=== PATIENT | female | born 1980 | race Caucasian/White ===

== ENCOUNTER → 2016-07-12 | Outpatient (CLI) | payer MEDICAID | END | disposition home or self-care (01) | LOC: WOUND 09:40 | PROVIDERS: ATTEND Physician Assistant | DX: L97.811 Non-pressure chronic ulcer of other part of right lower leg limited to breakdown of skin (principal); I89.0 Lymphedema, not elsewhere classified; E66.01 Morbid (severe) obesity due to excess calories; I10 Essential (primary) hypertension; Z87.891 Personal history of nicotine dependence | CPT/HCPCS: 87070; 87077; 87147; 87186; 87205; 99205 ==

== ENCOUNTER → 2016-07-17 | Outpatient (CLI) | payer MEDICAID | END | disposition home or self-care (01) | LOC: WOUND 11:02 | PROVIDERS: ATTEND Internal Medicine | DX: L97.811 Non-pressure chronic ulcer of other part of right lower leg limited to breakdown of skin (principal); I89.0 Lymphedema, not elsewhere classified; E66.01 Morbid (severe) obesity due to excess calories; I10 Essential (primary) hypertension; Z87.891 Personal history of nicotine dependence | CPT/HCPCS: 87070; 87077; 87147; 87186; 87205; 97597; 97598 ==

== ENCOUNTER → 2016-07-24 | Outpatient (CLI) | payer MEDICAID | END | disposition home or self-care (01) | LOC: WOUND 09:58 | PROVIDERS: ATTEND Internal Medicine | DX: L97.811 Non-pressure chronic ulcer of other part of right lower leg limited to breakdown of skin (principal); I89.0 Lymphedema, not elsewhere classified; E66.01 Morbid (severe) obesity due to excess calories; I10 Essential (primary) hypertension; Z87.891 Personal history of nicotine dependence | CPT/HCPCS: 97597 ==

== ENCOUNTER → 2016-07-31 | Outpatient (CLI) | payer MEDICAID | END | disposition home or self-care (01) | LOC: WOUND 09:58 | PROVIDERS: ATTEND Internal Medicine | DX: L97.811 Non-pressure chronic ulcer of other part of right lower leg limited to breakdown of skin (principal); I89.0 Lymphedema, not elsewhere classified; E66.01 Morbid (severe) obesity due to excess calories; I10 Essential (primary) hypertension; Z87.891 Personal history of nicotine dependence | CPT/HCPCS: 97597; 97598 ==

== ENCOUNTER → 2016-08-01 | Outpatient (CLI) | payer MEDICAID | END | disposition home or self-care (01) | LOC: CVU 11:32 | PROVIDERS: ATTEND Internal Medicine | DX: L97.811 Non-pressure chronic ulcer of other part of right lower leg limited to breakdown of skin (principal); I89.0 Lymphedema, not elsewhere classified; I10 Essential (primary) hypertension | CPT/HCPCS: 93922; 93925; 93970 ==

== ENCOUNTER → 2016-08-07 | Outpatient (CLI) | payer MEDICAID | END | disposition home or self-care (01) | LOC: WOUND 09:25 | PROVIDERS: ATTEND Internal Medicine | DX: L97.811 Non-pressure chronic ulcer of other part of right lower leg limited to breakdown of skin (principal); I89.0 Lymphedema, not elsewhere classified; E66.01 Morbid (severe) obesity due to excess calories; Z68.45 Body mass index [BMI] 70 or greater, adult; I10 Essential (primary) hypertension; Z87.891 Personal history of nicotine dependence | CPT/HCPCS: 97597; 97598 ==

== ENCOUNTER → 2016-08-14 | Outpatient (CLI) | payer MEDICAID | END | disposition home or self-care (01) | LOC: WOUND 09:30 | PROVIDERS: ATTEND Internal Medicine | DX: L97.811 Non-pressure chronic ulcer of other part of right lower leg limited to breakdown of skin (principal); I89.0 Lymphedema, not elsewhere classified; E66.01 Morbid (severe) obesity due to excess calories; Z68.45 Body mass index [BMI] 70 or greater, adult; I10 Essential (primary) hypertension; Z87.891 Personal history of nicotine dependence | CPT/HCPCS: 97597; 97598 ==

== ENCOUNTER → 2016-08-21 | Outpatient (CLI) | payer MEDICAID | END | disposition home or self-care (01) | LOC: WOUND 09:44 | PROVIDERS: ATTEND Internal Medicine | DX: L97.811 Non-pressure chronic ulcer of other part of right lower leg limited to breakdown of skin (principal); I89.0 Lymphedema, not elsewhere classified; E66.01 Morbid (severe) obesity due to excess calories; Z68.45 Body mass index [BMI] 70 or greater, adult; Z87.891 Personal history of nicotine dependence | CPT/HCPCS: 97597; 97598 ==

== ENCOUNTER → 2016-08-23 | Outpatient (CLI) | payer MEDICAID | END | disposition home or self-care (01) | LOC: WOUND 09:51 | PROVIDERS: ATTEND Physician Assistant | DX: L97.811 Non-pressure chronic ulcer of other part of right lower leg limited to breakdown of skin (principal); I89.0 Lymphedema, not elsewhere classified; E66.01 Morbid (severe) obesity due to excess calories; Z68.45 Body mass index [BMI] 70 or greater, adult; Z87.891 Personal history of nicotine dependence | CPT/HCPCS: 29581 ==

== ENCOUNTER → 2016-08-28 | Outpatient (CLI) | payer MEDICAID ==
[~2016-08-28] MED LIST: FURO20TA3 PO; LEVO500T33 PO; LOSA25TA5 PO; POTASSIUM PO
== END | disposition home or self-care (01) ==
LOC: WOUND 10:00
PROVIDERS: ATTEND Internal Medicine
DX: L97.811 Non-pressure chronic ulcer of other part of right lower leg limited to breakdown of skin (principal); I89.0 Lymphedema, not elsewhere classified; E66.01 Morbid (severe) obesity due to excess calories; I10 Essential (primary) hypertension; Z87.891 Personal history of nicotine dependence; Z72.89 Other problems related to lifestyle; Z68.45 Body mass index [BMI] 70 or greater, adult
CPT/HCPCS: 97597; 97598

== ENCOUNTER → 2016-08-30 | Outpatient (CLI) | payer MEDICAID | END | disposition home or self-care (01) | LOC: WOUND 10:23 | PROVIDERS: ATTEND Internal Medicine Cardiovascular Disease | DX: L97.811 Non-pressure chronic ulcer of other part of right lower leg limited to breakdown of skin (principal); I89.0 Lymphedema, not elsewhere classified; E66.01 Morbid (severe) obesity due to excess calories; Z68.45 Body mass index [BMI] 70 or greater, adult; Z86.73 Personal history of transient ischemic attack (TIA), and cerebral infarction without residual deficits; Z79.899 Other long term (current) drug therapy | CPT/HCPCS: 97602 ==

== ENCOUNTER 2016-09-04 11:51 | Inpatient (IN) | payer MEDICAID ==
[~2016-09-04] VITALS: Ht 165.1 cm; Wt 224.0 kg
[2016-09-04] MEDS ORDERED: SODIUM CHLORIDE 0.9% 1,000 ML IV ONE ×2 (12:29→14:22)
[2016-09-04] MEDS ORDERED: SODIUM CHLORIDE FLUSH 10ML SYR IVF ONE ×2 (12:30→14:30)
[2016-09-04] MEDS: AMPICILLIN/SULBACTAM 3 GM in SODIUM CHLORIDE 0.9% 100 ML IVPB ONE (12:30)
[2016-09-04] MEDS ORDERED: ONDANSETRON 2MG/ML, 2ML IVPush ONE (12:30)
[2016-09-04] MEDS ORDERED: ONDANSETRON 2MG/ML, 2ML ONE (14:14)
[2016-09-04] MEDS ORDERED: MORPHINE SULFATE 4 MG/ML, 1ML ONE ×2 (14:14→14:34)
[2016-09-04] MEDS: MORPHINE SULFATE 4 MG/ML, 1ML IVPush PRN ×2 (14:18→14:39)
[2016-09-04] MEDS ORDERED: LEVOFLOXACIN/PMX 750MG/150ML 150 ML ONE (14:25)
[2016-09-04] MEDS ORDERED: LEVOFLOXACIN/PMX 750MG/150ML 150 ML IVPB ONE (14:30)
[2016-09-04] MEDS ORDERED: SODIUM CHLORIDE 0.9% 1,000ML IVBOLUS ONE (14:30)
[2016-09-04] MEDS ORDERED: LEVO500T33 PO (14:31)
[2016-09-04] MEDS ORDERED: LOSA25TA5 PO (14:31)
[2016-09-04] MEDS ORDERED: POTASSIUM PO (14:31)
[2016-09-04] MEDS ORDERED: FURO20TA3 PO (14:31)
[2016-09-04] MEDS ORDERED: HYDROmorphone 1 MG/ML, 1ML ONE ×2 (14:59→15:42)
[2016-09-04] MEDS: HYDROmorphone 1 MG/ML, 1ML IVPush PRN ×2 (15:05→15:48)
[2016-09-04 15:07] LABS: BLOOD UREA NITROGEN 26 mg/dL (7-18)
[2016-09-04] MEDS ORDERED: SODIUM CHLORIDE FLUSH 10ML SYR IVF PRN (15:30)
[2016-09-04] MEDS ORDERED: ACETAMINOPHEN 325 MG TABLET PO PRN (16:00)
[2016-09-04] MEDS ORDERED: ONDANSETRON 2MG/ML, 2ML IVPush PRN (16:00)
[2016-09-04] MEDS ORDERED: LABETALOL 5MG/ML, 20ML IVPush PRN (16:00)
[2016-09-04] MEDS ORDERED: BISACODYL 10 MG SUPP PR PRN (16:00)
[2016-09-04] MEDS ORDERED: LACTATED RINGERS 1,000 ML IV SCH (16:00)
[2016-09-04] MEDS ORDERED: ENALAPRILAT 1.25 MG/ML, 2ML IVPush PRN (16:00)
[2016-09-04] MEDS ORDERED: HYDROmorphone 2 MG/ML, 1ML IVPush PRN (16:00)
[2016-09-04] MEDS ORDERED: KETOROLAC 30 MG/1 ML IVPush ONE (16:30)
[2016-09-04 16:47] LABS: C-REACTIVE PROTEIN, QUANT 1.8 mg/dL (0.02-0.49)
[2016-09-04] MEDS ORDERED: HYDROmorphone PCA 30 MG/30 ML IV PRN (18:00)
[2016-09-04] MEDS: PIPERACILLIN/TAZO/PMX 3.375GM 50 ML IV SCH ×2 (18:20→23:31)
[2016-09-04 18:56] VITALS: BP 145/85
[2016-09-04] MEDS: FAMOTIDINE 20 MG TABLET PO SCH (21:00)
[2016-09-04] MEDS: ENOXAPARIN 40 MG/0.4 ML SQ SCH (23:29)
[2016-09-05 03:53] VITALS: BP 153/89
[2016-09-05] MEDS: PIPERACILLIN/TAZO/PMX 3.375GM 50 ML IV SCH ×3 (05:42→17:41)
[2016-09-05 05:58] LABS: BLOOD UREA NITROGEN 28 mg/dL (7-18)
[2016-09-05 08:20] VITALS: BP 155/85
[2016-09-05] MEDS: FUROSEMIDE 20 MG TABLET PO SCH (08:54)
[2016-09-05] MEDS: SENNA/DOCUSATE TABLET PO SCH (08:54)
[2016-09-05] MEDS: LOSARTAN 25MG TABLET PO SCH (08:55)
[2016-09-05] MEDS: ENOXAPARIN 40 MG/0.4 ML SQ SCH ×2 (08:55→21:28)
[2016-09-05] MEDS: FAMOTIDINE 20 MG TABLET PO SCH ×2 (08:55→21:00)
[2016-09-05] MEDS ORDERED: DAKIN'S SOLUTION 1/4 STRENGTH 1,000 ML IRRIG SOLN EXT SCH (09:00)
[2016-09-05] MEDS: KETOROLAC 30 MG/1 ML IVPush SCH ×2 (11:39→17:41)
[2016-09-05 12:45] VITALS: BP 113/73
[2016-09-05] MEDS: OXYcodone/APAP 5/325MG TABLET PO SCH ×2 (15:35→21:28)
[2016-09-05 21:02] VITALS: BP 125/77
[2016-09-06] MEDS: PIPERACILLIN/TAZO/PMX 3.375GM 50 ML IV SCH ×3 (00:10→13:17)
[2016-09-06 02:00] VITALS: BP 131/78
[2016-09-06] MEDS: KETOROLAC 30 MG/1 ML IVPush SCH ×3 (02:00→20:41)
[2016-09-06] MEDS: OXYcodone/APAP 5/325MG TABLET PO SCH ×4 (03:15→22:15)
[2016-09-06] MEDS: LOSARTAN 25MG TABLET PO SCH (08:53)
[2016-09-06] MEDS: FUROSEMIDE 20 MG TABLET PO SCH (08:53)
[2016-09-06] MEDS: FAMOTIDINE 20 MG TABLET PO SCH ×2 (08:53→22:15)
[2016-09-06 08:54] VITALS: BP 147/84
[2016-09-06] MEDS: ENOXAPARIN 40 MG/0.4 ML SQ SCH ×2 (08:54→22:15)
[2016-09-06] MEDS: SENNA/DOCUSATE TABLET PO SCH (08:54)
[2016-09-06] MEDS: DAKIN'S SOLUTION 1/4 STRENGTH 1,000 ML IRRIG SOLN EXT SCH ×2 (09:00→21:00)
[2016-09-06 15:25] VITALS: BP 125/77
[2016-09-06] MEDS: AMPICILLIN/SULBACTAM 3 GM in SODIUM CHLORIDE 0.9% 100 ML IV SCH ×2 (15:53→22:15)
[2016-09-06 20:33] VITALS: BP 124/94
[2016-09-06] MEDS: AMITRIPTYLINE 25 MG TABLET PO SCH (22:15)
[2016-09-07 02:12] VITALS: BP 139/91
[2016-09-07] MEDS: KETOROLAC 30 MG/1 ML IVPush SCH ×3 (04:09→20:58)
[2016-09-07] MEDS: OXYcodone/APAP 5/325MG TABLET PO SCH ×4 (04:09→22:22)
[2016-09-07] MEDS: AMPICILLIN/SULBACTAM 3 GM in SODIUM CHLORIDE 0.9% 100 ML IV SCH ×2 (05:09→10:44)
[2016-09-07 06:41] VITALS: BP 124/80
[2016-09-07] MEDS: SENNA/DOCUSATE TABLET PO SCH (07:40)
[2016-09-07] MEDS: FAMOTIDINE 20 MG TABLET PO SCH ×2 (07:40→20:58)
[2016-09-07] MEDS: FUROSEMIDE 20 MG TABLET PO SCH (07:41)
[2016-09-07] MEDS: LOSARTAN 25MG TABLET PO SCH (07:41)
[2016-09-07] MEDS: ENOXAPARIN 40 MG/0.4 ML SQ SCH ×2 (07:42→20:58)
[2016-09-07] MEDS: DAKIN'S SOLUTION 1/4 STRENGTH 1,000 ML IRRIG SOLN EXT SCH ×2 (09:00→21:00)
[2016-09-07] MEDS ORDERED: HYDROmorphone PCA 30 MG/30 ML IV PRN (12:30)
[2016-09-07 14:03] VITALS: BP 123/77
[2016-09-07] MEDS: AMOXICILLIN/CLAV 875-125MG TABLET PO SCH (16:05)
[2016-09-07 18:26] VITALS: BP 132/80
[2016-09-07] MEDS: AMITRIPTYLINE 25 MG TABLET PO SCH (21:00)
[2016-09-08 02:39] VITALS: BP 125/69
[2016-09-08] MEDS: AMOXICILLIN/CLAV 875-125MG TABLET PO SCH ×2 (04:02→17:20)
[2016-09-08] MEDS: OXYcodone/APAP 5/325MG TABLET PO SCH ×4 (04:03→22:43)
[2016-09-08] MEDS: KETOROLAC 30 MG/1 ML IVPush SCH ×3 (05:06→22:39)
[2016-09-08] MEDS: DAKIN'S SOLUTION 1/4 STRENGTH 1,000 ML IRRIG SOLN EXT SCH ×2 (06:14→21:00)
[2016-09-08 07:35] VITALS: BP 138/80
[2016-09-08] MEDS: SENNA/DOCUSATE TABLET PO SCH (07:36)
[2016-09-08] MEDS: POLYETHYLENE GLYCOL 17 GM PACKET PO PRN (07:37)
[2016-09-08] MEDS: FAMOTIDINE 20 MG TABLET PO SCH ×2 (07:37→22:43)
[2016-09-08] MEDS: LOSARTAN 25MG TABLET PO SCH (07:37)
[2016-09-08] MEDS: ENOXAPARIN 40 MG/0.4 ML SQ SCH ×2 (07:37→22:44)
[2016-09-08] MEDS: FUROSEMIDE 20 MG TABLET PO SCH (07:37)
[2016-09-08 13:13] VITALS: BP 129/98
[2016-09-08 20:15] VITALS: BP 123/67
[2016-09-08] MEDS: AMITRIPTYLINE 25 MG TABLET PO SCH (21:00)
[2016-09-09 04:18] VITALS: BP 119/79
[2016-09-09] MEDS: OXYcodone/APAP 5/325MG TABLET PO SCH ×4 (04:47→23:00)
[2016-09-09] MEDS: AMOXICILLIN/CLAV 875-125MG TABLET PO SCH ×2 (04:47→17:46)
[2016-09-09 04:49] VITALS: BP 130/85
[2016-09-09] MEDS ORDERED: HYDROmorphone PCA 30 MG/30 ML IV PRN (06:00)
[2016-09-09 06:30] VITALS: BP 129/78
[2016-09-09] MEDS: IBUPROFEN 800 MG TABLET PO SCH ×3 (06:32→23:00)
[2016-09-09] MEDS ORDERED: SENNA/DOCUSATE TABLET PO SCH (09:00)
[2016-09-09] MEDS: FAMOTIDINE 20 MG TABLET PO SCH ×2 (09:21→23:00)
[2016-09-09] MEDS: SENNA/DOCUSATE TABLET PO SCH (09:21)
[2016-09-09] MEDS: FUROSEMIDE 20 MG TABLET PO SCH (09:21)
[2016-09-09] MEDS: LOSARTAN 25MG TABLET PO SCH (09:21)
[2016-09-09] MEDS: ENOXAPARIN 40 MG/0.4 ML SQ SCH ×2 (09:22→23:01)
[2016-09-09] MEDS: POLYETHYLENE GLYCOL 17 GM PACKET PO PRN (09:27)
[2016-09-09] MEDS: DAKIN'S SOLUTION 1/4 STRENGTH 1,000 ML IRRIG SOLN EXT SCH ×2 (11:15→21:00)
[2016-09-09 12:11] VITALS: BP 120/79
[2016-09-09 18:35] VITALS: BP 131/81
[2016-09-10 01:30] VITALS: BP 126/80
[2016-09-10] MEDS: OXYcodone/APAP 5/325MG TABLET PO SCH ×3 (05:46→16:45)
[2016-09-10] MEDS: AMOXICILLIN/CLAV 875-125MG TABLET PO SCH ×2 (05:46→16:45)
[2016-09-10 06:58] VITALS: BP 137/83
[2016-09-10] MEDS: IBUPROFEN 800 MG TABLET PO SCH ×2 (07:51→15:30)
[2016-09-10] MEDS: LOSARTAN 25MG TABLET PO SCH (09:44)
[2016-09-10] MEDS: ENOXAPARIN 40 MG/0.4 ML SQ SCH (09:44)
[2016-09-10] MEDS: SENNA/DOCUSATE TABLET PO SCH (09:44)
[2016-09-10] MEDS: FAMOTIDINE 20 MG TABLET PO SCH (09:44)
[2016-09-10] MEDS: FUROSEMIDE 20 MG TABLET PO SCH (09:44)
[2016-09-10 12:37] VITALS: BP 148/85
[2016-09-10] MEDS ORDERED: CEPH-368 PO (12:46)
[2016-09-10] MEDS: DAKIN'S SOLUTION 1/4 STRENGTH 1,000 ML IRRIG SOLN EXT SCH (17:36)
[2016-09-10 18:28] VITALS: BP 118/82
== END 2016-09-10 18:43 | disposition home or self-care (01) | DRG 300 ==
LOC: ED 15:25 → EDIP 15:27 → ED 15:47 → 3NE 16:47
PROVIDERS: ADMIT Family Medicine; ATTEND Family Medicine
DX: I83.012 Varicose veins of right lower extremity with ulcer of calf (principal); L97.219 Non-pressure chronic ulcer of right calf with unspecified severity; L03.115 Cellulitis of right lower limb; Z68.45 Body mass index [BMI] 70 or greater, adult; E66.01 Morbid (severe) obesity due to excess calories; I10 Essential (primary) hypertension; R73.03 Prediabetes; B96.4 Proteus (mirabilis) (morganii) as the cause of diseases classified elsewhere; B95.1 Streptococcus, group B, as the cause of diseases classified elsewhere; G89.29 Other chronic pain; Z87.891 Personal history of nicotine dependence; Z83.3 Family history of diabetes mellitus; Z82.49 Family history of ischemic heart disease and other diseases of the circulatory system; Z79.899 Other long term (current) drug therapy; Z90.49 Acquired absence of other specified parts of digestive tract
CPT/HCPCS: 36415; 80048; 80061; 82040; 82565; 83036; 83605; 84145; 84443; 85025; 85520; 85610; 86140; 87040; 96365; 96375; J0295; J1170; J1650; J1885; J1956; J2405; J2543; J7030; J7120

== ENCOUNTER → 2016-09-04 | Outpatient (CLI) | payer MEDICAID ==
[~2016-09-04] MED LIST changes: +CEPH-368 PO
== END | disposition home or self-care (01) ==
LOC: WOUND 10:30
PROVIDERS: ATTEND Internal Medicine
DX: L97.811 Non-pressure chronic ulcer of other part of right lower leg limited to breakdown of skin (principal); I89.0 Lymphedema, not elsewhere classified; E66.01 Morbid (severe) obesity due to excess calories; B95.1 Streptococcus, group B, as the cause of diseases classified elsewhere; Z86.73 Personal history of transient ischemic attack (TIA), and cerebral infarction without residual deficits; Z68.45 Body mass index [BMI] 70 or greater, adult; Z87.891 Personal history of nicotine dependence; Z90.49 Acquired absence of other specified parts of digestive tract; G89.29 Other chronic pain; Z72.89 Other problems related to lifestyle
CPT/HCPCS: 87070; 87077; 87147; 87186; 87205; 97597; 97598; 99215

== ENCOUNTER → 2016-09-13 | Outpatient (CLI) | payer MEDICAID | END | disposition home or self-care (01) | LOC: WOUND 13:09 | PROVIDERS: ATTEND Physician Assistant | DX: L97.811 Non-pressure chronic ulcer of other part of right lower leg limited to breakdown of skin (principal); I89.0 Lymphedema, not elsewhere classified; E66.01 Morbid (severe) obesity due to excess calories; Z68.45 Body mass index [BMI] 70 or greater, adult; Z87.891 Personal history of nicotine dependence | CPT/HCPCS: 97597; 97598 ==

== ENCOUNTER → 2016-09-16 | Outpatient (CLI) | payer MEDICAID | END | disposition home or self-care (01) | LOC: WOUND 10:59 | PROVIDERS: ATTEND Physician Assistant | DX: L97.811 Non-pressure chronic ulcer of other part of right lower leg limited to breakdown of skin (principal); I89.0 Lymphedema, not elsewhere classified; E66.01 Morbid (severe) obesity due to excess calories; Z68.45 Body mass index [BMI] 70 or greater, adult; I10 Essential (primary) hypertension; Z87.891 Personal history of nicotine dependence | CPT/HCPCS: 29581 ==

== ENCOUNTER → 2016-09-18 | Outpatient (CLI) | payer MEDICAID | END | disposition home or self-care (01) | LOC: WOUND 11:00 | PROVIDERS: ATTEND Internal Medicine | DX: L97.811 Non-pressure chronic ulcer of other part of right lower leg limited to breakdown of skin (principal); E66.01 Morbid (severe) obesity due to excess calories; I10 Essential (primary) hypertension; Z68.45 Body mass index [BMI] 70 or greater, adult; B96.4 Proteus (mirabilis) (morganii) as the cause of diseases classified elsewhere; B95.1 Streptococcus, group B, as the cause of diseases classified elsewhere; Z86.73 Personal history of transient ischemic attack (TIA), and cerebral infarction without residual deficits; Z79.899 Other long term (current) drug therapy; Z87.891 Personal history of nicotine dependence; Z72.89 Other problems related to lifestyle | CPT/HCPCS: 97597; 97598 ==

== ENCOUNTER → 2016-09-20 | Outpatient (CLI) | payer MEDICAID | END | disposition home or self-care (01) | LOC: WOUND 08:30 | PROVIDERS: ATTEND Physician Assistant | DX: L97.811 Non-pressure chronic ulcer of other part of right lower leg limited to breakdown of skin (principal); E66.01 Morbid (severe) obesity due to excess calories; I89.0 Lymphedema, not elsewhere classified; G89.29 Other chronic pain; I10 Essential (primary) hypertension; Z68.45 Body mass index [BMI] 70 or greater, adult; Z79.899 Other long term (current) drug therapy; Z72.89 Other problems related to lifestyle; Z86.73 Personal history of transient ischemic attack (TIA), and cerebral infarction without residual deficits | CPT/HCPCS: 29581 ==

== ENCOUNTER → 2016-09-24 | Outpatient (CLI) | payer MEDICAID | END | disposition home or self-care (01) | LOC: WOUND 10:24 | PROVIDERS: ATTEND Internal Medicine | DX: L97.811 Non-pressure chronic ulcer of other part of right lower leg limited to breakdown of skin (principal); I89.0 Lymphedema, not elsewhere classified; E66.01 Morbid (severe) obesity due to excess calories; I10 Essential (primary) hypertension; Z72.89 Other problems related to lifestyle; Z87.891 Personal history of nicotine dependence | CPT/HCPCS: 97597; 97598 ==

== ENCOUNTER → 2016-09-27 | Outpatient (CLI) | payer MEDICAID | END | disposition home or self-care (01) | LOC: WOUND 10:54 | PROVIDERS: ATTEND Physician Assistant | DX: L97.811 Non-pressure chronic ulcer of other part of right lower leg limited to breakdown of skin (principal); I89.0 Lymphedema, not elsewhere classified; E66.01 Morbid (severe) obesity due to excess calories; I10 Essential (primary) hypertension; G89.29 Other chronic pain; Z68.45 Body mass index [BMI] 70 or greater, adult; Z86.73 Personal history of transient ischemic attack (TIA), and cerebral infarction without residual deficits; Z87.891 Personal history of nicotine dependence; Z72.89 Other problems related to lifestyle | CPT/HCPCS: 29581 ==

== ENCOUNTER → 2016-10-01 | Outpatient (CLI) | payer MEDICAID | END | disposition home or self-care (01) | LOC: WOUND 11:15 | PROVIDERS: ATTEND Internal Medicine | DX: L97.821 Non-pressure chronic ulcer of other part of left lower leg limited to breakdown of skin (principal); I89.0 Lymphedema, not elsewhere classified; E66.01 Morbid (severe) obesity due to excess calories; I10 Essential (primary) hypertension; Z72.89 Other problems related to lifestyle; Z68.45 Body mass index [BMI] 70 or greater, adult; Z79.899 Other long term (current) drug therapy; Z86.73 Personal history of transient ischemic attack (TIA), and cerebral infarction without residual deficits; Z87.891 Personal history of nicotine dependence; Z90.49 Acquired absence of other specified parts of digestive tract | CPT/HCPCS: 97597; 97598 ==

== ENCOUNTER → 2016-10-04 | Outpatient (CLI) | payer MEDICAID | END | disposition home or self-care (01) | LOC: WOUND 10:30 | PROVIDERS: ATTEND Physician Assistant | DX: L97.811 Non-pressure chronic ulcer of other part of right lower leg limited to breakdown of skin (principal); I89.0 Lymphedema, not elsewhere classified; E66.01 Morbid (severe) obesity due to excess calories; I10 Essential (primary) hypertension; Z68.45 Body mass index [BMI] 70 or greater, adult; Z90.49 Acquired absence of other specified parts of digestive tract; Z87.891 Personal history of nicotine dependence; Z72.89 Other problems related to lifestyle; Z86.73 Personal history of transient ischemic attack (TIA), and cerebral infarction without residual deficits | CPT/HCPCS: 29581 ==

== ENCOUNTER → 2016-10-08 | Outpatient (CLI) | payer MEDICAID | END | disposition home or self-care (01) | LOC: WOUND 11:08 | PROVIDERS: ATTEND Internal Medicine | DX: L97.811 Non-pressure chronic ulcer of other part of right lower leg limited to breakdown of skin (principal); I89.0 Lymphedema, not elsewhere classified; E66.01 Morbid (severe) obesity due to excess calories; I10 Essential (primary) hypertension; Z86.73 Personal history of transient ischemic attack (TIA), and cerebral infarction without residual deficits; G89.29 Other chronic pain; Z68.45 Body mass index [BMI] 70 or greater, adult; Z72.89 Other problems related to lifestyle; Z87.891 Personal history of nicotine dependence | CPT/HCPCS: 97597; 97598 ==

== ENCOUNTER → 2016-10-11 | Outpatient (CLI) | payer MEDICAID | END | disposition home or self-care (01) | LOC: WOUND 11:00 | PROVIDERS: ATTEND Physician Assistant | DX: L97.811 Non-pressure chronic ulcer of other part of right lower leg limited to breakdown of skin (principal); I89.0 Lymphedema, not elsewhere classified; E66.01 Morbid (severe) obesity due to excess calories; Z68.45 Body mass index [BMI] 70 or greater, adult; I10 Essential (primary) hypertension; Z87.891 Personal history of nicotine dependence; Z72.89 Other problems related to lifestyle; Z86.73 Personal history of transient ischemic attack (TIA), and cerebral infarction without residual deficits; G89.29 Other chronic pain | CPT/HCPCS: 29581 ==

== ENCOUNTER → 2016-10-16 | Outpatient (CLI) | payer MEDICAID | END | disposition home or self-care (01) | LOC: WOUND 11:05 | PROVIDERS: ATTEND Internal Medicine | DX: L97.811 Non-pressure chronic ulcer of other part of right lower leg limited to breakdown of skin (principal); I89.0 Lymphedema, not elsewhere classified; E66.01 Morbid (severe) obesity due to excess calories; Z68.45 Body mass index [BMI] 70 or greater, adult; I10 Essential (primary) hypertension; G89.29 Other chronic pain; Z72.89 Other problems related to lifestyle; Z87.891 Personal history of nicotine dependence; Z86.73 Personal history of transient ischemic attack (TIA), and cerebral infarction without residual deficits | CPT/HCPCS: 97597; 97598 ==

== ENCOUNTER → 2016-10-22 | Outpatient (CLI) | payer MEDICAID | END | disposition home or self-care (01) | LOC: WOUND 10:50 | PROVIDERS: ATTEND Internal Medicine Cardiovascular Disease | DX: L97.811 Non-pressure chronic ulcer of other part of right lower leg limited to breakdown of skin (principal); I89.0 Lymphedema, not elsewhere classified; E66.01 Morbid (severe) obesity due to excess calories; I10 Essential (primary) hypertension; G89.29 Other chronic pain; Z87.891 Personal history of nicotine dependence; Z68.45 Body mass index [BMI] 70 or greater, adult; Z86.73 Personal history of transient ischemic attack (TIA), and cerebral infarction without residual deficits | CPT/HCPCS: 29581 ==

== ENCOUNTER → 2016-10-29 | Outpatient (CLI) | payer MEDICAID ==
[~2016-10-29] MED LIST changes: -LEVO500T33 PO; +LEVO500T47 PO
== END | disposition home or self-care (01) ==
LOC: WOUND 11:19
PROVIDERS: ATTEND Internal Medicine
DX: L97.811 Non-pressure chronic ulcer of other part of right lower leg limited to breakdown of skin (principal); I89.0 Lymphedema, not elsewhere classified; E66.01 Morbid (severe) obesity due to excess calories; I10 Essential (primary) hypertension; Z68.45 Body mass index [BMI] 70 or greater, adult; Z87.891 Personal history of nicotine dependence; Z86.73 Personal history of transient ischemic attack (TIA), and cerebral infarction without residual deficits; Z90.49 Acquired absence of other specified parts of digestive tract; Z72.89 Other problems related to lifestyle
CPT/HCPCS: 97597; 97598

== ENCOUNTER → 2016-11-07 | Outpatient (CLI) | payer MEDICAID | END | disposition home or self-care (01) | LOC: WOUND 12:45 | PROVIDERS: ATTEND Internal Medicine Cardiovascular Disease | DX: L97.811 Non-pressure chronic ulcer of other part of right lower leg limited to breakdown of skin (principal); I89.0 Lymphedema, not elsewhere classified; E66.01 Morbid (severe) obesity due to excess calories; G89.29 Other chronic pain; Z68.45 Body mass index [BMI] 70 or greater, adult; Z72.89 Other problems related to lifestyle; Z87.891 Personal history of nicotine dependence; Z86.73 Personal history of transient ischemic attack (TIA), and cerebral infarction without residual deficits | CPT/HCPCS: 99214 ==

== ENCOUNTER → 2016-11-12 | Outpatient (CLI) | payer MEDICAID | LOC: WOUND 10:18 | PROVIDERS: ATTEND Internal Medicine | DX: L97.811 Non-pressure chronic ulcer of other part of right lower leg limited to breakdown of skin (principal); I89.0 Lymphedema, not elsewhere classified; E66.01 Morbid (severe) obesity due to excess calories; I10 Essential (primary) hypertension; Z87.891 Personal history of nicotine dependence; Z86.73 Personal history of transient ischemic attack (TIA), and cerebral infarction without residual deficits; Z90.49 Acquired absence of other specified parts of digestive tract; Z68.45 Body mass index [BMI] 70 or greater, adult; Z79.899 Other long term (current) drug therapy | CPT/HCPCS: 97597; 97598 ==

== ENCOUNTER → 2016-11-19 | Outpatient (CLI) | payer MEDICAID | END | disposition home or self-care (01) | LOC: WOUND 09:55 | PROVIDERS: ATTEND Internal Medicine | DX: L97.811 Non-pressure chronic ulcer of other part of right lower leg limited to breakdown of skin (principal); I89.0 Lymphedema, not elsewhere classified; E66.01 Morbid (severe) obesity due to excess calories; I10 Essential (primary) hypertension; Z90.49 Acquired absence of other specified parts of digestive tract; Z68.45 Body mass index [BMI] 70 or greater, adult; Z87.891 Personal history of nicotine dependence; Z86.73 Personal history of transient ischemic attack (TIA), and cerebral infarction without residual deficits; Z72.89 Other problems related to lifestyle | CPT/HCPCS: 97597; 97598 ==

== ENCOUNTER → 2016-11-26 | Outpatient (CLI) | payer MEDICAID | END | disposition home or self-care (01) | LOC: WOUND 09:45 | PROVIDERS: ATTEND Internal Medicine | DX: L97.811 Non-pressure chronic ulcer of other part of right lower leg limited to breakdown of skin (principal); I89.0 Lymphedema, not elsewhere classified; E66.01 Morbid (severe) obesity due to excess calories; I10 Essential (primary) hypertension; Z87.891 Personal history of nicotine dependence; Z90.49 Acquired absence of other specified parts of digestive tract; Z68.45 Body mass index [BMI] 70 or greater, adult; Z72.89 Other problems related to lifestyle; Z86.73 Personal history of transient ischemic attack (TIA), and cerebral infarction without residual deficits; Z79.899 Other long term (current) drug therapy | CPT/HCPCS: 97597; 97598 ==

== ENCOUNTER → 2016-12-03 | Outpatient (CLI) | payer MEDICAID | END | disposition home or self-care (01) | LOC: WOUND 09:45 | PROVIDERS: ATTEND Internal Medicine | DX: L97.811 Non-pressure chronic ulcer of other part of right lower leg limited to breakdown of skin (principal); I89.0 Lymphedema, not elsewhere classified; E66.01 Morbid (severe) obesity due to excess calories; I10 Essential (primary) hypertension; Z68.45 Body mass index [BMI] 70 or greater, adult; Z87.891 Personal history of nicotine dependence; Z86.73 Personal history of transient ischemic attack (TIA), and cerebral infarction without residual deficits; Z90.49 Acquired absence of other specified parts of digestive tract; Z72.89 Other problems related to lifestyle | CPT/HCPCS: 97597; 97598 ==

== ENCOUNTER → 2016-12-06 | Outpatient (CLI) | payer MEDICAID | END | disposition home or self-care (01) | LOC: WOUND 09:51 | PROVIDERS: ATTEND Internal Medicine Cardiovascular Disease | DX: L97.811 Non-pressure chronic ulcer of other part of right lower leg limited to breakdown of skin (principal); I89.0 Lymphedema, not elsewhere classified; E66.01 Morbid (severe) obesity due to excess calories; I10 Essential (primary) hypertension; Z68.45 Body mass index [BMI] 70 or greater, adult; Z90.49 Acquired absence of other specified parts of digestive tract; Z72.89 Other problems related to lifestyle; Z87.891 Personal history of nicotine dependence; Z86.73 Personal history of transient ischemic attack (TIA), and cerebral infarction without residual deficits | CPT/HCPCS: 29581 ==

== ENCOUNTER → 2016-12-10 | Outpatient (CLI) | payer MEDICAID | END | disposition home or self-care (01) | LOC: WOUND 10:30 | PROVIDERS: ATTEND Internal Medicine | DX: L97.811 Non-pressure chronic ulcer of other part of right lower leg limited to breakdown of skin (principal); I89.0 Lymphedema, not elsewhere classified; E66.01 Morbid (severe) obesity due to excess calories; I10 Essential (primary) hypertension; Z68.45 Body mass index [BMI] 70 or greater, adult; Z87.891 Personal history of nicotine dependence; Z86.73 Personal history of transient ischemic attack (TIA), and cerebral infarction without residual deficits; Z90.49 Acquired absence of other specified parts of digestive tract; Z72.89 Other problems related to lifestyle | CPT/HCPCS: 97597; 97598 ==

== ENCOUNTER → 2016-12-13 | Outpatient (CLI) | payer MEDICAID | END | disposition home or self-care (01) | LOC: WOUND 10:30 | PROVIDERS: ATTEND Physician Assistant | DX: L97.811 Non-pressure chronic ulcer of other part of right lower leg limited to breakdown of skin (principal); I89.0 Lymphedema, not elsewhere classified; E66.01 Morbid (severe) obesity due to excess calories; Z68.45 Body mass index [BMI] 70 or greater, adult; I10 Essential (primary) hypertension; Z72.89 Other problems related to lifestyle; Z87.891 Personal history of nicotine dependence; Z86.73 Personal history of transient ischemic attack (TIA), and cerebral infarction without residual deficits | CPT/HCPCS: 29581 ==

== ENCOUNTER → 2016-12-17 | Outpatient (CLI) | payer MEDICAID | END | disposition home or self-care (01) | LOC: WOUND 10:02 | PROVIDERS: ATTEND Specialist | DX: L97.811 Non-pressure chronic ulcer of other part of right lower leg limited to breakdown of skin (principal); I89.0 Lymphedema, not elsewhere classified; E66.01 Morbid (severe) obesity due to excess calories; Z68.45 Body mass index [BMI] 70 or greater, adult; I10 Essential (primary) hypertension; Z86.73 Personal history of transient ischemic attack (TIA), and cerebral infarction without residual deficits; Z87.891 Personal history of nicotine dependence; Z72.89 Other problems related to lifestyle | CPT/HCPCS: 29581 ==

== ENCOUNTER → 2016-12-24 | Outpatient (CLI) | payer MEDICAID | END | disposition home or self-care (01) | LOC: WOUND 10:15 | PROVIDERS: ATTEND Internal Medicine | DX: L97.811 Non-pressure chronic ulcer of other part of right lower leg limited to breakdown of skin (principal); I89.0 Lymphedema, not elsewhere classified; I10 Essential (primary) hypertension; E66.01 Morbid (severe) obesity due to excess calories; Z68.45 Body mass index [BMI] 70 or greater, adult; Z87.891 Personal history of nicotine dependence; Z72.89 Other problems related to lifestyle; Z86.73 Personal history of transient ischemic attack (TIA), and cerebral infarction without residual deficits; Z90.49 Acquired absence of other specified parts of digestive tract; Z79.899 Other long term (current) drug therapy | CPT/HCPCS: 97597; 97598 ==

== ENCOUNTER → 2016-12-27 | Outpatient (CLI) | payer MEDICAID | END | disposition home or self-care (01) | LOC: WOUND 09:47 | PROVIDERS: ATTEND Physician Assistant | DX: L97.811 Non-pressure chronic ulcer of other part of right lower leg limited to breakdown of skin (principal); I10 Essential (primary) hypertension; I89.0 Lymphedema, not elsewhere classified; E66.01 Morbid (severe) obesity due to excess calories; Z72.89 Other problems related to lifestyle; Z87.891 Personal history of nicotine dependence; Z86.73 Personal history of transient ischemic attack (TIA), and cerebral infarction without residual deficits; Z68.45 Body mass index [BMI] 70 or greater, adult | CPT/HCPCS: 29581 ==

== ENCOUNTER → 2016-12-31 | Outpatient (CLI) | payer MEDICAID | END | disposition home or self-care (01) | LOC: WOUND 09:59 | PROVIDERS: ATTEND Internal Medicine | DX: L97.811 Non-pressure chronic ulcer of other part of right lower leg limited to breakdown of skin (principal); I89.0 Lymphedema, not elsewhere classified; E66.01 Morbid (severe) obesity due to excess calories; Z68.45 Body mass index [BMI] 70 or greater, adult; I10 Essential (primary) hypertension; Z87.891 Personal history of nicotine dependence; Z72.89 Other problems related to lifestyle; Z86.73 Personal history of transient ischemic attack (TIA), and cerebral infarction without residual deficits | CPT/HCPCS: 97597 ==

== ENCOUNTER → 2017-01-07 | Outpatient (CLI) | payer MEDICAID | END | disposition home or self-care (01) | LOC: WOUND 08:30 | PROVIDERS: ATTEND Internal Medicine | DX: L97.811 Non-pressure chronic ulcer of other part of right lower leg limited to breakdown of skin (principal); I89.0 Lymphedema, not elsewhere classified; E66.01 Morbid (severe) obesity due to excess calories; Z68.45 Body mass index [BMI] 70 or greater, adult; I10 Essential (primary) hypertension; Z72.89 Other problems related to lifestyle; Z87.891 Personal history of nicotine dependence; Z86.73 Personal history of transient ischemic attack (TIA), and cerebral infarction without residual deficits | CPT/HCPCS: 11042 ==

== ENCOUNTER → 2017-01-09 | Outpatient (CLI) | payer MEDICAID | END | disposition home or self-care (01) | LOC: WOUND 10:43 | PROVIDERS: ATTEND Internal Medicine Cardiovascular Disease | DX: L97.811 Non-pressure chronic ulcer of other part of right lower leg limited to breakdown of skin (principal); I89.0 Lymphedema, not elsewhere classified; E66.01 Morbid (severe) obesity due to excess calories; I10 Essential (primary) hypertension; Z68.45 Body mass index [BMI] 70 or greater, adult; Z72.89 Other problems related to lifestyle; Z87.891 Personal history of nicotine dependence; Z86.73 Personal history of transient ischemic attack (TIA), and cerebral infarction without residual deficits | CPT/HCPCS: 29581 ==

== ENCOUNTER → 2017-01-24 | Outpatient (CLI) | payer MEDICAID | END | disposition home or self-care (01) | LOC: WOUND 10:53 | PROVIDERS: ATTEND Family Medicine | DX: L97.811 Non-pressure chronic ulcer of other part of right lower leg limited to breakdown of skin (principal); I89.0 Lymphedema, not elsewhere classified; E66.01 Morbid (severe) obesity due to excess calories; Z68.45 Body mass index [BMI] 70 or greater, adult; I10 Essential (primary) hypertension; Z72.89 Other problems related to lifestyle; Z87.891 Personal history of nicotine dependence; Z86.73 Personal history of transient ischemic attack (TIA), and cerebral infarction without residual deficits | CPT/HCPCS: 97597 ==

== ENCOUNTER → 2017-02-05 | Outpatient (CLI) | payer MEDICAID | END | disposition home or self-care (01) | LOC: WOUND 08:43 | PROVIDERS: ATTEND Internal Medicine | DX: L97.811 Non-pressure chronic ulcer of other part of right lower leg limited to breakdown of skin (principal); I89.0 Lymphedema, not elsewhere classified; E66.01 Morbid (severe) obesity due to excess calories; Z68.45 Body mass index [BMI] 70 or greater, adult; I10 Essential (primary) hypertension; Z72.89 Other problems related to lifestyle; Z87.891 Personal history of nicotine dependence; Z86.73 Personal history of transient ischemic attack (TIA), and cerebral infarction without residual deficits | CPT/HCPCS: 11042 ==

== ENCOUNTER → 2017-02-12 | Outpatient (CLI) | payer MEDICAID | END | disposition home or self-care (01) | LOC: WOUND 09:00 | PROVIDERS: ATTEND Family Medicine | DX: L97.811 Non-pressure chronic ulcer of other part of right lower leg limited to breakdown of skin (principal); I89.0 Lymphedema, not elsewhere classified; E66.01 Morbid (severe) obesity due to excess calories; I10 Essential (primary) hypertension; Z68.45 Body mass index [BMI] 70 or greater, adult; Z72.89 Other problems related to lifestyle; Z87.891 Personal history of nicotine dependence; Z86.73 Personal history of transient ischemic attack (TIA), and cerebral infarction without residual deficits | CPT/HCPCS: 97597 ==

== ENCOUNTER → 2017-02-18 | Outpatient (CLI) | payer MEDICAID | END | disposition home or self-care (01) | LOC: WOUND 09:19 | PROVIDERS: ATTEND Surgery | DX: L97.811 Non-pressure chronic ulcer of other part of right lower leg limited to breakdown of skin (principal); I89.0 Lymphedema, not elsewhere classified; E66.01 Morbid (severe) obesity due to excess calories; I10 Essential (primary) hypertension; Z68.45 Body mass index [BMI] 70 or greater, adult; Z72.89 Other problems related to lifestyle; Z87.891 Personal history of nicotine dependence; Z86.73 Personal history of transient ischemic attack (TIA), and cerebral infarction without residual deficits; Z90.49 Acquired absence of other specified parts of digestive tract | CPT/HCPCS: 99214 ==

== ENCOUNTER → 2017-03-14 | Outpatient (CLI) | payer MEDICAID | END | disposition home or self-care (01) | LOC: WOUND 14:00 | PROVIDERS: ATTEND Family Medicine | DX: L97.811 Non-pressure chronic ulcer of other part of right lower leg limited to breakdown of skin (principal); E66.01 Morbid (severe) obesity due to excess calories; I89.0 Lymphedema, not elsewhere classified; I10 Essential (primary) hypertension; Z87.891 Personal history of nicotine dependence; Z86.73 Personal history of transient ischemic attack (TIA), and cerebral infarction without residual deficits; Z90.49 Acquired absence of other specified parts of digestive tract; Z68.45 Body mass index [BMI] 70 or greater, adult; Z72.89 Other problems related to lifestyle | CPT/HCPCS: 11042 ==

== ENCOUNTER → 2017-03-18 | Outpatient (CLI) | payer MEDICAID | END | disposition home or self-care (01) | LOC: WOUND 10:42 | PROVIDERS: ATTEND Surgery | DX: L97.811 Non-pressure chronic ulcer of other part of right lower leg limited to breakdown of skin (principal); E66.01 Morbid (severe) obesity due to excess calories; I89.0 Lymphedema, not elsewhere classified; I10 Essential (primary) hypertension; Z90.49 Acquired absence of other specified parts of digestive tract; Z87.891 Personal history of nicotine dependence; Z86.73 Personal history of transient ischemic attack (TIA), and cerebral infarction without residual deficits; Z72.89 Other problems related to lifestyle; Z68.45 Body mass index [BMI] 70 or greater, adult | CPT/HCPCS: 29581 ==

== ENCOUNTER → 2017-03-21 | Outpatient (CLI) | payer MEDICAID | END | disposition home or self-care (01) | LOC: WOUND 08:10 | PROVIDERS: ATTEND Family Medicine | DX: L97.811 Non-pressure chronic ulcer of other part of right lower leg limited to breakdown of skin (principal); E66.01 Morbid (severe) obesity due to excess calories; I89.0 Lymphedema, not elsewhere classified; I10 Essential (primary) hypertension; Z87.891 Personal history of nicotine dependence; Z86.73 Personal history of transient ischemic attack (TIA), and cerebral infarction without residual deficits; Z68.45 Body mass index [BMI] 70 or greater, adult; Z90.49 Acquired absence of other specified parts of digestive tract; Z72.89 Other problems related to lifestyle | CPT/HCPCS: 97597 ==

== ENCOUNTER → 2017-03-25 | Outpatient (CLI) | payer MEDICAID | END | disposition home or self-care (01) | LOC: WOUND 09:00 | PROVIDERS: ATTEND Internal Medicine Cardiovascular Disease | DX: L97.811 Non-pressure chronic ulcer of other part of right lower leg limited to breakdown of skin (principal); E66.01 Morbid (severe) obesity due to excess calories; I89.0 Lymphedema, not elsewhere classified; I10 Essential (primary) hypertension; Z87.891 Personal history of nicotine dependence; Z68.45 Body mass index [BMI] 70 or greater, adult; Z72.89 Other problems related to lifestyle; Z86.73 Personal history of transient ischemic attack (TIA), and cerebral infarction without residual deficits | CPT/HCPCS: 29581 ==

== ENCOUNTER → 2017-03-28 | Outpatient (CLI) | payer MEDICAID | END | disposition home or self-care (01) | LOC: WOUND 09:00 | PROVIDERS: ATTEND Internal Medicine Cardiovascular Disease | DX: L97.811 Non-pressure chronic ulcer of other part of right lower leg limited to breakdown of skin (principal); E66.01 Morbid (severe) obesity due to excess calories; I89.0 Lymphedema, not elsewhere classified; I10 Essential (primary) hypertension; Z87.891 Personal history of nicotine dependence; Z86.73 Personal history of transient ischemic attack (TIA), and cerebral infarction without residual deficits; Z90.49 Acquired absence of other specified parts of digestive tract; Z68.45 Body mass index [BMI] 70 or greater, adult; Z72.89 Other problems related to lifestyle | CPT/HCPCS: 29581 ==

== ENCOUNTER → 2017-04-01 | Outpatient (CLI) | payer MEDICAID | END | disposition home or self-care (01) | LOC: WOUND 10:11 | PROVIDERS: ATTEND Internal Medicine Cardiovascular Disease | DX: I89.0 Lymphedema, not elsewhere classified (principal); I10 Essential (primary) hypertension; E66.01 Morbid (severe) obesity due to excess calories; Z87.891 Personal history of nicotine dependence; Z86.73 Personal history of transient ischemic attack (TIA), and cerebral infarction without residual deficits; Z90.49 Acquired absence of other specified parts of digestive tract; Z68.45 Body mass index [BMI] 70 or greater, adult; Z72.89 Other problems related to lifestyle | CPT/HCPCS: 29581 ==

== ENCOUNTER → 2017-04-04 | Outpatient (CLI) | payer MEDICAID | END | disposition home or self-care (01) | LOC: WOUND 11:15 | PROVIDERS: ATTEND Family Medicine | DX: I89.0 Lymphedema, not elsewhere classified (principal); L97.811 Non-pressure chronic ulcer of other part of right lower leg limited to breakdown of skin; E66.01 Morbid (severe) obesity due to excess calories; I10 Essential (primary) hypertension; Z87.891 Personal history of nicotine dependence; Z68.45 Body mass index [BMI] 70 or greater, adult; Z86.73 Personal history of transient ischemic attack (TIA), and cerebral infarction without residual deficits | CPT/HCPCS: 97597 ==

== ENCOUNTER → 2017-04-08 | Outpatient (CLI) | payer MEDICAID | END | disposition home or self-care (01) | LOC: WOUND 09:54 | PROVIDERS: ATTEND Internal Medicine Cardiovascular Disease | DX: L97.811 Non-pressure chronic ulcer of other part of right lower leg limited to breakdown of skin (principal); E66.01 Morbid (severe) obesity due to excess calories; I89.0 Lymphedema, not elsewhere classified; I10 Essential (primary) hypertension; Z86.73 Personal history of transient ischemic attack (TIA), and cerebral infarction without residual deficits; Z87.891 Personal history of nicotine dependence; Z72.89 Other problems related to lifestyle; Z90.49 Acquired absence of other specified parts of digestive tract; Z68.45 Body mass index [BMI] 70 or greater, adult | CPT/HCPCS: 29581 ==

== ENCOUNTER → 2017-04-11 | Outpatient (CLI) | payer MEDICAID | END | disposition home or self-care (01) | LOC: WOUND 10:30 | PROVIDERS: ATTEND Family Medicine | DX: L97.811 Non-pressure chronic ulcer of other part of right lower leg limited to breakdown of skin (principal); E66.01 Morbid (severe) obesity due to excess calories; I89.0 Lymphedema, not elsewhere classified; I10 Essential (primary) hypertension; Z90.49 Acquired absence of other specified parts of digestive tract; Z68.45 Body mass index [BMI] 70 or greater, adult; Z87.891 Personal history of nicotine dependence; Z86.73 Personal history of transient ischemic attack (TIA), and cerebral infarction without residual deficits; Z72.89 Other problems related to lifestyle | CPT/HCPCS: 29581 ==

== ENCOUNTER → 2017-04-22 | Outpatient (CLI) | payer MEDICAID | END | disposition home or self-care (01) | LOC: WOUND 11:31 | PROVIDERS: ATTEND Family Medicine | DX: L97.811 Non-pressure chronic ulcer of other part of right lower leg limited to breakdown of skin (principal); E66.01 Morbid (severe) obesity due to excess calories; I89.0 Lymphedema, not elsewhere classified; I10 Essential (primary) hypertension; Z87.891 Personal history of nicotine dependence; Z86.73 Personal history of transient ischemic attack (TIA), and cerebral infarction without residual deficits; Z90.49 Acquired absence of other specified parts of digestive tract; Z72.89 Other problems related to lifestyle | CPT/HCPCS: 29581 ==

== ENCOUNTER → 2017-05-02 | Outpatient (CLI) | payer MEDICAID | END | disposition home or self-care (01) | LOC: WOUND 09:21 | PROVIDERS: ATTEND Family Medicine | DX: L97.811 Non-pressure chronic ulcer of other part of right lower leg limited to breakdown of skin (principal); I10 Essential (primary) hypertension; I89.0 Lymphedema, not elsewhere classified; E66.01 Morbid (severe) obesity due to excess calories; Z87.891 Personal history of nicotine dependence; Z90.49 Acquired absence of other specified parts of digestive tract; Z68.45 Body mass index [BMI] 70 or greater, adult; Z86.73 Personal history of transient ischemic attack (TIA), and cerebral infarction without residual deficits; Z72.89 Other problems related to lifestyle | CPT/HCPCS: 29581 ==

== ENCOUNTER → 2017-05-21 | Outpatient (CLI) | payer MEDICAID | END | disposition home or self-care (01) | LOC: WOUND 10:24 | PROVIDERS: ATTEND Internal Medicine | DX: L97.811 Non-pressure chronic ulcer of other part of right lower leg limited to breakdown of skin (principal); E66.01 Morbid (severe) obesity due to excess calories; I89.0 Lymphedema, not elsewhere classified; Z68.45 Body mass index [BMI] 70 or greater, adult; Z72.89 Other problems related to lifestyle; Z86.73 Personal history of transient ischemic attack (TIA), and cerebral infarction without residual deficits; Z87.891 Personal history of nicotine dependence | CPT/HCPCS: 29581 ==

== ENCOUNTER 2020-09-11 07:44 | Outpatient (CLI) | payer MEDICAID ==
[~2020-09-11 07:44] MED LIST changes: +LOSA25TA25 PO; -LOSA25TA5 PO
== END 2020-09-11 23:59 | disposition home or self-care (01) ==
LOC: CFH 07:44
PROVIDERS: ATTEND Obstetrics & Gynecology Female Pelvic Medicine and Reconstructive Surgery
DX: N64.4 Mastodynia (principal)
CPT/HCPCS: 77062; 77066; G0279